=== PATIENT | female | born 1950 | race Caucasian/White ===

== ENCOUNTER 2023-07-06 11:21 | Outpatient (CLI) | payer OTHER, MEDICAID | END 2023-07-06 11:22 | disposition home or self-care (01) | LOC: LABBT 11:21 | PROVIDERS: ATTEND Specialist | DX: K40.20 Bilateral inguinal hernia, without obstruction or gangrene, not specified as recurrent (principal) | CPT/HCPCS: 71046; 93005; 93010 ==

== ENCOUNTER 2023-07-10 10:57 | Day surgery (SDC) | payer OTHER, MEDICAID ==
[2023-07-06 12:00] VITALS: BMI 19.1
[2023-07-10] MEDS ORDERED: Ketorolac Tromethamine 30 MG/ML VIAL ONE ×3 (11:27→14:13)
[2023-07-10] MEDS ORDERED: Acetaminophen 500 MG TAB ONE (11:27)
[2023-07-10 12:15] LABS: #Basophils 0.1 thou/uL (0.0-0.2); #Eosinphils 0.1 thou/uL (0.0-0.7); #Monocytes 0.7 thou/uL (0.11-0.59); #Neutrophils 4.5 thou/uL (1.40-6.50); %Basophils 0.8 % (0.0-1.0); %Eosinophils 0.8 % (0.0-10.0); %Lymphocytes 33.9 % (21.0-51.0); %Monocytes 8.1 % (0.0-10.0); %Neutrophils 56.1 % (42.0-75.0); Hematocrit 43.9 % (36.0-47.0); Mean Corpuscular HGB CONC 31.9 g/dL (32.0-36.0); Mean Corpuscular Hemoglobin 27.8 pg (27.0-31.0); Mean Corpuscular Volume 87.1 fl (78.0-98.0); Mean Platelet Volume 12.3 fL (7.4-10.4); Platelet Count 227 10x3/uL (130-400); RBC Distribution Width 13.6 % (11.5-14.5); Red Blood Cell (RBC) Count 5.04 mill/uL (4.20-5.40)
[2023-07-10 12:35] LABS: Anion Gap 16 mmol/L (10-20); BUN (Urea Nitrogen) 13 mg/dL (9.8-20.1); Calc. Creatinine Clearance 48 mL/min (70-130); Calcium 9.7 mg/dL (7.8-10.44); Carbon Dioxide 26 mmol/L (23-31); Chloride 102 mmol/L (98-107); Estimated GFR 75; Glucose 88 mg/dL (83-110); Sodium 139 mmol/L (136-145)
[2023-07-10] MEDS ORDERED: EPINEPHrine 1 MG/ML VIAL ONE (12:38)
[2023-07-10] MEDS ORDERED: Bupivacaine 0.25% HCL 30 ML VIAL ONE (12:38)
[2023-07-10] MEDS ORDERED: Famotidine/PF 20 mg/2ml Vial ONE (12:46)
[2023-07-10] MEDS ORDERED: Sevoflurane 250 ML INH ANEST BOTTLE ONE (12:46)
[2023-07-10] MEDS ORDERED: fentaNYL PF 100 MCG/2 ML SYRINGE ONE (12:47)
[2023-07-10] MEDS ORDERED: PROPOFOL 20 ML ONE (12:48)
[2023-07-10] MEDS ORDERED: CEFAZOLIN 2 GM VIAL ONE (12:56)
[2023-07-10] MEDS ORDERED: Sodium Chloride 0.9% 100 ML ONE (12:56)
[2023-07-10] MEDS ORDERED: PHENYLEPHRINE-NS 100 MCG/ML 10 ML SYRINGE ONE (13:14)
[2023-07-10] MEDS ORDERED: Rocuronium Bromide 10 MG/ML (10ML VIAL) ONE (13:14)
[2023-07-10] MEDS ORDERED: Dexamethasone 20 MG/5 ML VIAL ONE (13:14)
[2023-07-10] MEDS ORDERED: Glycopyrrolate 0.2 MG/ML 5 ML SYRINGE ONE ×2 (13:14→14:19)
[2023-07-10] MEDS ORDERED: PROPOFOL 200 MG/20 ML VIAL ONE (13:14)
[2023-07-10] MEDS ORDERED: NEOSTIGMINE 3 MG/3 ML SYR 3 MG/3 ML SYRINGE ONE ×2 (13:14→14:19)
[2023-07-10] MEDS ORDERED: Ondansetron PF 4 MG/2 ML Vial ONE ×2 (13:14→14:13)
[2023-07-10] MEDS ORDERED: Lidocaine 1% PF 5 ML VIAL ONE (13:14)
[2023-07-10] MEDS ORDERED: MINERAL OIL/WHITE PETROLATUM 3.5 GM TUBE ONE (13:42)
[2023-07-10] MEDS ORDERED: Dexamethasone 4 mg/ml Vial ONE (14:13)
[2023-07-10] MEDS ORDERED: fentaNYL 50 mcg/mL 1 mL Vial ONE (14:25)
== END 2023-07-10 16:34 | disposition home or self-care (01) ==
LOC: SDC 10:57
PROVIDERS: ATTEND Specialist
PROC: 0YQ54ZZ Repair Right Inguinal Region, Percutaneous Endoscopic Approach (ICD-10-PCS; principal; 2023-07-10)
DX: K40.20 Bilateral inguinal hernia, without obstruction or gangrene, not specified as recurrent (principal)
CPT/HCPCS: 49650; 80048; 85025; A4314; C1781; J0171; J3010; J1100; J1885; J2405; J2704; J3490; S0020; S0028